=== PATIENT | male | born 2000 | race Two or more races ===

== ENCOUNTER 2024-05-17 00:09 | Emergency (ER) | payer MEDICAID ==
--- NOTE | 2024-05-17 04:50 | ED.PDOC ---
HPI Comments 23-YEAR-OLD MALE PRESENTS TO THE ED CHIEF COMPLAINT LEFT THUMB LACERATION. HE WAS CUTTING MEAT SLIPPED IN THE CUT HIS LEFT THUMB. CONTROLLED IN TRIAGE NUMBNESS OR WEAKNESS. Chief Complaint: Laceration Time Seen by MD: 00:23 Reviewed Notes: Nurses Notes, Medications, Allergies Home Meds Active Scripts Ibuprofen (Ibuprofen) 800 Mg Tab, 1 TAB PO TID PRN for 7 Days, #21 TAB Prov:BRANDIN REDDY CARTON LINER 05/17/24 Amoxicillin & Pot Clavulanate (AUGMENTIN TABLET) 875 Mg Tb, 875 MG PO BID for 7 Days, #14 TAB Prov:BRANDIN REDDY CARTON LINER 05/17/24 Mode of Arrival: Ambulatory Complexity: Intermediate, Complex Laceration Length (cm): 2 Past Medical History PAST MEDICAL HISTORY: Denies Surgical History: Denies all surgeries Family History Family History: Reviewed,noncontributory to illness Social History Smoker: Non-Smoker Alcohol: Denies ETOH Use Drugs: Denies Drug Use Constitutional: denies: chills, diaphoresis, fatigue, fever, malaise, sweats, weakness, others EENTM: denies: blurred vision, double vision, ear bleeding, ear discharge, ear drainage, ear pain, ear ringing, eye pain, eye redness, hearing loss, mouth pain, mouth swelling, nasal discharge, nose bleeding, nose congestion, nose pain, photophobia, tearing, throat pain, throat swelling, voice changes, others Respiratory: denies: cough, hemoptysis, orthopnea, SOB at rest, shortness of breath, SOB with excertion, stridor, wheezing, others Cardiovascular: denies: chest pain, dizzy spells, diaphoresis, Dyspnea on exertion, edema, irregular heart beat, left arm pain, lightheadedness, palpitations, PND, syncope, others Gastrointestinal: denies: abdomen distended, abdominal pain, blood streaked bowels, constipated, diarrhea, dysphagia, difficulty swallowing, hematemesis, melena, nausea, poor appetite, poor fluid intake, rectal bleeding, rectal pain, vomiting, others Genitourinary: denies: burning, dysuria, flank pain, frequency, hematuria, incontinence, penile discharge, penile sore, pain, testicle pain, testicle swelling, urgency, others Neurological: denies: dizziness, fainting, headache, left sided numbness, left sided weakness, numbness, paresthesia, pre-existing deficit, right sided nu mbness, right sided weakness, seizure, speech problems, tingling, tremors, weakness, others Musculoskeletal: denies: back pain, gout, joint pain, joint swelling, muscle pain, muscle stiffness, neck pain, others Integumetry: denies: bruises, change in color, change in hair/nails, dryness, laceration, lesions, lumps, rash, wounds, others Allergic/Immunocompromised: denies: Difficulty Healing, Frequent Infections, Hives, Itching, others Hematologic/Lymphatic: denies: anemia, blood clots, easy bleeding, easy bruising, swollen glands, others Endocrine: denies: excessive hunger, excessive sweating, excessive thirst, excessive urination, flushing, intolerance to cold, intolerance to heat, unexplained weight gain, unexplained weight loss, others Psychiatric: denies: anxiety, bipolar disorder, depression, hopeless, panic disorder, schizophrenia, sleepless, suicidal, others Physical Exam General Appearance: No Apparent Distress, Normal HEENT: Pharynx Normal Neck: Full Range of Motion, Non-Tender Respiratory: Chest Non-Tender, Lungs Clear, No Accessory Muscle Use, No Respiratory Distress, Normal Breath Sounds Cardiovascular: No Murmur, Normal Peripheral Pulses, Regular Rate/Rhythm Breast Exam: Deferred Gastrointestinal: Non Tender, Soft Genitalia: Deferred Pelvic: Deferred Rectal: Deferred Extremities: Normal capillary refill, Normal inspection, Normal range of motion, Non-tender, No pedal edema Musculoskeletal : Apperance: Normal 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 SENSORY STRENGTH AND MOTION INTACT. LESS THAN 3 SECONDS.), Normal Color, Warm Lymphatic: No Adenopathy Was a procedure done? Was a procedure done?: Yes Sedation Sedation?: No Informed consent obtained: Yes Laceration Repair : Location LEFT THUMB MIDDLE PHALANX POSTERIOR ASPECT Length 2 CM Anesthetic: Lidocaine, Without epi Laceration Repair Prep: Saline Laceration Repair Wound Comple: epidermis/dermis repair Laceration Repair: Number of sutures (6), Simple Informed consent obtained: Yes Risks, benefits, and alternati: Yes Notes PATIENT TOLERATED PROCEDURE WELL MINIMAL BLOOD LOSS Differential diagnosis Generic Laceration: Fracture, Retained Foriegn Body, Neurovascular Injury, Tendon Injury X-Ray, Labs, Meds, VS Vital Signs Date Time Temp Pulse Resp B/P (MAP) Pulse Ox O2 Delivery O2 Flow Rate FiO2 05/17/24 00:37 100.0 88 18 157/75 (102) 99 100.0 05/17/24 00:37 Room Air 05/17/24 00:37 100.0 88 18 157/75 (102) 99 X-Ray, Labs, Meds, VS Comment X-RAY LEFT HAND THUMB NO ACUTE FINDINGS OR OSSEOUS LESIONS. SEE PROCEDURE NOTE. PATIENT PLACED IN FROG SPLINT AND DRESSED. ADVISED FOLLOW UP WITH PCP, URGENT CARE, OR BACK HERE IN THE ER FOR SUTURE REMOVAL 7-10 DAYS. FOLLOW UP WITH HIS PCP IN 2-3 DAYS FOR WOUND RE-EVALUATION. SCRIPT AUGMENTIN PROPHYLACTICALLY. RETURN TO THE ER FOR INCREASING PAIN, NUMBNESS, WEAKNESS, UNCONTROLLED BLEEDING OR SIGNS AND SYMPTOMS OF INFECTION. INDICATES UNDERSTANDING AGREES WITH DISCHARGE PLAN OF CARE. Time of 1ST Reevaluation: 05:14 Reevaluation 1ST: Improved Patient Education/Counseling: Prognosis, Need For Follow Up Family Education/Counseling: No Family Present Departure 1 Departure Time of Disposition: 05:14 Impression: Primary Impression: Laceration of thumb without damage to nail Qualified Codes: S61.012A - Laceration without foreign body of left thumb without damage to nail, initial encounter Disposition: HOME / SELF CARE / HOMELESS Condition: Stable Additional Instructions: FOLLOW UP WITH PCP, URGENT CARE, OR BACK HERE IN THE ER FOR SUTURE REMOVAL 7-10 DAYS. FOLLOW UP WITH HIS PCP IN 2-3 DAYS FOR WOUND RE-EVALUATION. RETURN TO THE ER FOR INCREASING PAIN, NUMBNESS, WEAKNESS, UNCONTROLLED BLEEDING OR SIGNS AND SYMPTOMS OF INFECTION. e-Prescriptions Ibuprofen (Ibuprofen) 800 Mg Tab 1 TAB PO TID PRN for 7 Days, #21 TAB Prov: BRANDIN REDDY 05/17/24 Amoxicillin & Pot Clavulanate (AUGMENTIN TABLET) 875 Mg Tb 875 MG PO BID for 7 Days, #14 TAB Prov: BRANDIN REDDY 05/17/24 Discharged With: Self Critical Care Note Critical Care Time?: No Stability Stability form required: No BRANDIN REDDY May 17, 2024 04:49
[2024-05-17] MEDS ORDERED: IBUP-1456 PO (04:54)
[2024-05-17] MEDS ORDERED: AUG875T PO (04:54)
--- NOTE | 2024-05-17 05:05 | DVH ---
XY L HAND 3V XRAY, INDICATION: THUMB LACERATION/INJURY TECHNICAL DATA: Frontal, oblique and lateral views were obtained of the left hand. COMPARISON: None FINDINGS: No fracture is identified. Joint spaces are maintained. Alignment is anatomic. Soft tissues are withi n normal limits. IMPRESSION: 1. No acute fracture or dislocation of the left hand.
[2024-05-17 05:27] VITALS: BP 144/87; PULSE 82; RESP 20; TEMP 98.8; O2SAT 97
== END 2024-05-17 05:33 | disposition home or self-care (01) ==
LOC: ER 00:09
DX: S61.012A Laceration without foreign body of left thumb without damage to nail, initial encounter (principal); W26.0XXA Contact with knife, initial encounter; Y93.89 Activity, other specified; Y92.89 Other specified places as the place of occurrence of the external cause; Y99.8 Other external cause status
CPT/HCPCS: 12001; 73130; 99283; J2003